=== PATIENT | female | born 1950 | race African-American/Black ===

== ENCOUNTER → 2021-09-18 | Outpatient (CLI) | payer MEDICARE | LOC: SLEEP 19:16 | PROVIDERS: ATTEND Emergency Medicine | DX: G47.33 Obstructive sleep apnea (adult) (pediatric) (principal); R06.83 Snoring; E11.40 Type 2 diabetes mellitus with diabetic neuropathy, unspecified; E66.9 Obesity, unspecified; Z68.28 Body mass index [BMI] 28.0-28.9, adult | CPT/HCPCS: 95810 ==